=== PATIENT | female | born 1950 | race Caucasian/White ===

== ENCOUNTER → 2021-02-24 | Outpatient (CLI) | payer OTHER | LOC: KOH-I 10:54 | DX: S92.001D Unspecified fracture of right calcaneus, subsequent encounter for fracture with routine healing (principal); S92.211D Displaced fracture of cuboid bone of right foot, subsequent encounter for fracture with routine healing; S92.321D Displaced fracture of second metatarsal bone, right foot, subsequent encounter for fracture with routine healing | CPT/HCPCS: 73630; 73650 ==

== ENCOUNTER → 2021-03-28 | Outpatient (CLI) | payer OTHER | LOC: KOH-I 10:16 | DX: S92.001D Unspecified fracture of right calcaneus, subsequent encounter for fracture with routine healing (principal); M85.871 Other specified disorders of bone density and structure, right ankle and foot; M21.961 Unspecified acquired deformity of right lower leg; S92.321D Displaced fracture of second metatarsal bone, right foot, subsequent encounter for fracture with routine healing | CPT/HCPCS: 73620; 73650 ==

== ENCOUNTER → 2021-08-10 | Day surgery (SDC) | payer OTHER ==
[~2021-08-10] MED LIST: ALL DAY ALLERGY10 M2 PO; ATORVASTATIN CA80 MG PO; B-12500 MC1 PO; CITRACAL + D E1 EACH PO; POTASSIUM GLUC500 MG PO; VITAMIN D21250 MCG PO
== END | disposition home or self-care (01) ==
LOC: OR 05:50
DX: Z12.11 Encounter for screening for malignant neoplasm of colon (principal); D12.8 Benign neoplasm of rectum; K31.9 Disease of stomach and duodenum, unspecified; D18.03 Hemangioma of intra-abdominal structures; K29.70 Gastritis, unspecified, without bleeding; K25.9 Gastric ulcer, unspecified as acute or chronic, without hemorrhage or perforation; Z20.822 Contact with and (suspected) exposure to COVID-19
CPT/HCPCS: J2704; J7040